=== PATIENT | female | born 1965 | race Two or more races ===

== ENCOUNTER 2018-08-06 14:59 | Emergency (ER) | payer OTHER ==
[~2018-08-06] VITALS: Ht 170.2 cm; Wt 87.5 kg
== END 2018-08-06 17:19 | disposition home or self-care (01) ==
LOC: ER 14:59
DX: S80.01XA Contusion of right knee, initial encounter (principal); S60.211A Contusion of right wrist, initial encounter; W18.39XA Other fall on same level, initial encounter; Y93.89 Activity, other specified; Y92.098 Other place in other non-institutional residence as the place of occurrence of the external cause; Y99.8 Other external cause status

== ENCOUNTER 2018-10-06 12:55 | Emergency (ER) | payer OTHER ==
[~2018-10-06] VITALS: Ht 170.2 cm; Wt 84.8 kg
== END 2018-10-06 20:22 | disposition home or self-care (01) ==
LOC: ER 12:55
DX: N83.292 Other ovarian cyst, left side (principal); R10.32 Left lower quadrant pain

== ENCOUNTER 2018-10-10 12:14 | Inpatient (IN) | payer OTHER ==
[~2018-10-10] VITALS: Ht 170.2 cm; Wt 83.5 kg
== END 2018-10-16 11:05 | disposition home or self-care (01) | DRG 700 ==
LOC: ER 12:14 → MEDJ 10-11 06:17 → MEDI 10-11 06:17
PROVIDERS: ADMIT Internal Medicine Cardiovascular Disease
PROC: BW21ZZZ Computerized Tomography (CT Scan) of Abdomen and Pelvis (ICD-10-PCS; 2018-10-11)
PROC: 0TB13ZX Excision of Left Kidney, Percutaneous Approach, Diagnostic (ICD-10-PCS; principal; 2018-10-12)
PROC: 02HV33Z Insertion of Infusion Device into Superior Vena Cava, Percutaneous Approach (ICD-10-PCS; 2018-10-12)
PROC: BW21ZZZ Computerized Tomography (CT Scan) of Abdomen and Pelvis (ICD-10-PCS; 2018-10-12)
PROC: BW21Y0Z Computerized Tomography (CT Scan) of Abdomen and Pelvis using Other Contrast, Unenhanced and Enhanced (ICD-10-PCS; 2018-10-12)
PROC: BT43ZZZ Ultrasonography of Bilateral Kidneys (ICD-10-PCS; 2018-10-13)
PROC: BR39ZZZ Magnetic Resonance Imaging (MRI) of Lumbar Spine (ICD-10-PCS; 2018-10-14)
DX: N28.1 Cyst of kidney, acquired (principal); R31.0 Gross hematuria; M54.06 Panniculitis affecting regions of neck and back, lumbar region; K29.70 Gastritis, unspecified, without bleeding
CPT/HCPCS: 72148

== ENCOUNTER 2019-03-12 13:23 | Emergency (ER) | payer OTHER ==
[~2019-03-12] VITALS: Ht 170.2 cm; Wt 89.4 kg
== END 2019-03-12 21:40 | disposition home or self-care (01) ==
LOC: ER 13:23
DX: K29.70 Gastritis, unspecified, without bleeding (principal); B96.0 Mycoplasma pneumoniae [M. pneumoniae] as the cause of diseases classified elsewhere

== ENCOUNTER 2019-06-14 14:46 | Outpatient (CLI) | payer OTHER | END 2019-06-14 15:04 | disposition home or self-care (01) | LOC: LAB 14:46 | DX: J11.1 Influenza due to unidentified influenza virus with other respiratory manifestations (principal); D64.0 Hereditary sideroblastic anemia ==

== ENCOUNTER 2020-04-25 13:40 | Emergency (ER) | payer OTHER ==
[~2020-04-25] VITALS: Ht 170.2 cm; Wt 87.5 kg
== END 2020-04-25 22:25 | disposition home or self-care (01) ==
LOC: ER 13:40
DX: K29.70 Gastritis, unspecified, without bleeding (principal); R51.9 Headache, unspecified

== ENCOUNTER 2020-05-21 13:09 | Emergency (ER) | payer OTHER ==
[~2020-05-21] VITALS: Ht 170.2 cm; Wt 87.5 kg
[2020-05-21] MEDS ORDERED: SYNTHROID50 MCG PO (13:50)
== END 2020-05-21 22:21 | disposition home or self-care (01) ==
LOC: ER 13:09
DX: R51.9 Headache, unspecified (principal); Z03.818 Encounter for observation for suspected exposure to other biological agents ruled out

== ENCOUNTER 2020-09-25 12:51 | Emergency (ER) | payer OTHER ==
[~2020-09-25] VITALS: Ht 170.2 cm; Wt 89.8 kg
[~2020-09-25 12:51] MED LIST: SYNTHROID50 MCG PO
== END 2020-09-25 20:26 | disposition home or self-care (01) ==
LOC: ER 12:51
DX: G57.02 Lesion of sciatic nerve, left lower limb (principal); N20.0 Calculus of kidney; N39.0 Urinary tract infection, site not specified; M62.830 Muscle spasm of back; M54.5 Low back pain

== ENCOUNTER 2022-09-06 01:30 | Emergency (ER) | payer OTHER ==
[~2022-09-06] VITALS: Ht 170.2 cm; Wt 90.3 kg
[2022-09-06] MEDS ORDERED: PEPCID AC20 MG PO (08:03)
[2022-09-06] MEDS ORDERED: CARAFATE1 GM PO (08:03)
[2022-09-06] MEDS ORDERED: DICY20TA PO (08:03)
== END 2022-09-06 08:17 | disposition home or self-care (01) ==
LOC: ER 01:30
DX: K29.70 Gastritis, unspecified, without bleeding (principal); Z88.8 Allergy status to other drugs, medicaments and biological substances; Z91.013 Allergy to seafood; E03.9 Hypothyroidism, unspecified

== ENCOUNTER 2024-03-31 11:43 | Emergency (ER) | payer OTHER ==
[~2024-03-31] VITALS: Ht 170.2 cm; Wt 89.8 kg
[~2024-03-31 11:43] MED LIST changes: +CARAFATE1 GM PO; +DICY20TA PO; +PEPCID AC20 MG PO
[2024-03-31] MEDS ORDERED: 0.9 % SODIUM CHLORIDE 1,000 ML IV SCH (12:31)
[2024-03-31] MEDS ORDERED: FAMOTIDINE/PF 20 MG in 0.9 % SODIUM CHLORIDE 8 ML IV PUSH STA (12:31)
[2024-03-31 13:51] LABS: HEMATOCRIT 38.3 % (36.0-45.00); HEMOGLOBIN 13.1 g/dL (12.0-15.00); MEAN CELL VOLUME 85.1 fL (80.00-100.00); MEAN CORPUSCULAR HGB CONC 34.1 g/dl (32.0-36.0); PLATELET COUNT 309 K/uL (150-450); RED CELL DISTRIBUTION WIDTH 14.9 % (11.5-14.5)
[2024-03-31] MEDS ORDERED: MEPERIDINE HCL 25 MG/ML AMPUL IV ONE (14:30)
[2024-03-31] MEDS ORDERED: ONDANSETRON HCL 2 MG/ML VIAL IV STA (14:51)
[2024-03-31 15:39] LABS: CALCIUM 8.8 mg/dL (8.5-10.1); CREATININE SERUM 0.92 mg/dL (0.55-1.02); GFR 62.27; POTASSIUM 4.04 mEq/L (3.5-5.1)
[2024-03-31] MEDS ORDERED: PROMETHAZINE HCL 25 MG/ML AMPUL IM ONE (16:45)
[2024-03-31] MEDS ORDERED: ACETAMINOPHEN 500 MG GEL..CAP PO ONE (16:45)
== END 2024-03-31 16:55 | disposition home or self-care (01) ==
LOC: ER 11:45
PROVIDERS: Emergency Medicine
DX: B34.9 Viral infection, unspecified (principal); R51.9 Headache, unspecified; Z20.822 Contact with and (suspected) exposure to COVID-19; E03.8 Other specified hypothyroidism; Z88.5 Allergy status to narcotic agent; Z91.013 Allergy to seafood

== ENCOUNTER 2024-09-11 10:49 | Emergency (ER) | payer OTHER ==
[~2024-09-11] VITALS: Ht 170.2 cm; Wt 89.4 kg
[2024-09-11] MEDS ORDERED: METHYLPREDNISOLONE SOD SUCC 40 MG VIAL IV ONE (12:30)
[2024-09-11] MEDS ORDERED: FAMOtidine 10 MG/ML (4ML VIAL) IV ONE (12:30)
[2024-09-11] MEDS ORDERED: KETOROLAC TROMETHAMINE 30 MG VIAL IV ONE (12:30)
[2024-09-11] MEDS ORDERED: ONDANSETRON HCL 2 MG/ML VIAL IV ONE (12:30)
[2024-09-11] MEDS ORDERED: 0.9 % SODIUM CHLORIDE 1,000 ML IV ONE (12:30)
[2024-09-11] MEDS ORDERED: DIPHENHYDRAMINE HCL 50 MG/ML VIAL 1ML IV ONE (12:30)
[2024-09-11] MEDS ORDERED: ONDANSETRON HCL 2 MG/ML VIAL ONE (12:46)
[2024-09-11] MEDS ORDERED: DIPHENHYDRAMINE HCL 50 MG/ML VIAL 1ML ONE (12:46)
[2024-09-11] MEDS ORDERED: KETOROLAC TROMETHAMINE 30 MG VIAL ONE (12:46)
[2024-09-11] MEDS ORDERED: FAMOTIDINE/PF 20 MG/2 ML VIAL ONE (12:47)
[2024-09-11] MEDS ORDERED: METHYLPREDNISOLONE SOD SUCC 125 MG VIAL ONE (12:47)
[2024-09-11 13:21] LABS: BASO % 0.9 % (0.1-1.2); EOS # 0.32 (0.04-0.54); EOS % 4.7 % (0.7-7.0); HEMATOCRIT 37.7 % (34.1-44.9); HEMOGLOBIN 12.9 g/dL (11.2-15.7); LYMPH # 1.71 (1.18-3.74); LYMPH % 24.9 % (19.3-53.1); MONO # 0.57 (0.24-0.82); MONO % 8.3 % (4.7-12.5); NEUT % 61.1 % (34.0-71.1); PLATELET COUNT 281 K/uL (163-369); RED BLOOD COUNT 4.45 M/uL (3.93-5.22); RED CELL DISTRIBUTION WIDTH 13.8 % (11.6-14.4)
[2024-09-11 13:44] LABS: INR 1.05; PARTIAL THROMBOPLASTIN TIME 29.6 SECONDS (22.0-34.0); PROTHROMBIN TIME 11.4 SECONDS (9.0-11.5)
[2024-09-11 13:49] LABS: ALBUMIN 3.2 gm/dL (3.4-5.0); BILIRUBIN TOTAL 0.27 mg/dL (0.3-1.2); CALCIUM 8.8 mg/dL (8.5-10.1); CREATININE SERUM 1.05 mg/dL (0.55-1.02); GFR 53.46; GLOBULINA 3.8 G/DL (2.4-3.5); POTASSIUM 3.62 mEq/L (3.5-5.1)
[2024-09-11 14:22] LABS: URINE APPEARANCE Clear; URINE BILIRRUBIN Negative (NEGATIVE); URINE BLOOD Negative; URINE COLOR Yellow; URINE GLUCOSE Negative (NEGATIVE); URINE KETONE Trace (NEGATIVE); URINE LEUKOCYTE Trace; URINE NITRATE Negative; URINE PROTEIN Negative (NEGATIVE); URINE UROBILINOGEN 0.2 E.U./dl
[2024-09-11 14:26] LABS: URINE BACTERIA 2670.3 uL (0.0-1933); URINE EPITHELIAL CELLS 15.1 uL (0.0-38.8); URINE RBC 7.5 uL (0.0-20.8); URINE WBC 40.9 uL (0.0-23.2)
[2024-09-11 14:38] LABS: COVID-19 AG NEGATIVE (NEGATIVE)
[2024-09-11 14:42] LABS: INFLUENZA A AG NEGATIVE (NEGATIVE); INFLUENZA B AG NEGATIVE (NEGATIVE)
[2024-09-11 14:43] LABS: URINE CAST 0.58 uL (0.0-1.40)
[2024-09-11] MEDS ORDERED: HYOSCYAMINE SULFATE 0.125 MG TAB.SUBL ONE (15:36)
[2024-09-11] MEDS ORDERED: HYOSCYAMINE SULFATE 0.125 MG TAB.SUBL SL ONE (15:45)
[2024-09-11] MEDS ORDERED: PROTONIX40 MG PO (16:33)
[2024-09-11] MEDS ORDERED: NORFLEX100MG PO (16:33)
== END 2024-09-11 16:55 | disposition home or self-care (01) ==
LOC: ER 11:06
PROVIDERS: General Practice
DX: M25.561 Pain in right knee (principal); M17.11 Unilateral primary osteoarthritis, right knee; R10.13 Epigastric pain; E03.9 Hypothyroidism, unspecified; N28.9 Disorder of kidney and ureter, unspecified; Z88.8 Allergy status to other drugs, medicaments and biological substances; Z91.013 Allergy to seafood

== ENCOUNTER → 2025-03-21 | Emergency (ER) | payer OTHER ==
[~2025-03-21] VITALS: Ht 170.2 cm; Wt 89.4 kg
[~2025-03-21] MED LIST changes: +0.9 % SODIUM CHLORIDE 1,000 ML IV SCH; +FAMOTIDINE/PF 20 MG in 0.9 % SODIUM CHLORIDE 8 ML IV PUSH ONE; +FAMOTIDINE/PF 20 MG/2 ML VIAL ONE; +KETOROLAC TROMETHAMINE 30 MG VIAL IU ONE; +KETOROLAC TROMETHAMINE 30 MG VIAL ONE; +NORFLEX100MG PO; +ONDANSETRON HCL 2 MG/ML VIAL IV ONE; +ONDANSETRON HCL 2 MG/ML VIAL ONE; +PROTONIX40 MG PO
== END | disposition left against medical advice (07) ==
LOC: ER 18:00
DX: R10.13 Epigastric pain (principal); K85.90 Acute pancreatitis without necrosis or infection, unspecified; Z91.013 Allergy to seafood; E03.8 Other specified hypothyroidism; Z88.6 Allergy status to analgesic agent